=== PATIENT | female | born 1955 | race African-American/Black ===

== ENCOUNTER 2022-01-28 17:19 | Emergency (ER) | payer MEDICARE ==
[2022-01-28 18:29] LABS: Absolute Neutrophil Ct (ANC) 5.15 (1.4-6.9); Basophil (Absolute #) 0.01 (0-0.4); Eosinophil % 3.6 % (0.00-5.0); Eosinophil (Absolute #) 0.25 (0-0.5); Hematocrit 31.1 % (35-47); Hemoglobin 9.9 gm/dl (12.0-16.0); Lymphocytes % 17.3 % (24.0-44.0); Mean Cell Volume 99.7 fl (78-100); Mean Corpuscular Hemoglobin 31.7 pg (26-32); Mean Corpuscular Hgb Concent. 31.8 g/dl (32-36); Mean Platelet Volume 9.5 fl (7.5-11.0); Monocyte (Absolute #) 0.31 (0.0-1.3); Monocytes % 4.5 % (0.0-12.0); Neutrophil % 74.5 % (36.0-66.0); Platelet Count 216 K/mm3 (150-450); Red Blood Count 3.12 M/mm3 (4.1-5.4); Red Cell Distribution Width 14.2 % (11.5-14.0); White Blood Count 6.9 K/mm3 (4.0-10.5)
[2022-01-28 18:49] LABS: ALBUMIN 4.1 g/dL (3.5-5.0); ANION GAP 16.7 MEQ/L (5-15); BILIRUBIN,TOTAL 0.7 mg/dL (0.2-1.3); Calcium 9.2 mg/dL (8.4-10.2); Creatinine 1 5.53 mg/dL (0.52-1.04); EST GLOMERULAR FILTRATION RATE 8.1 ML/MIN; Potassium 5.7 mmol/L (3.5-5.1)
--- NOTE | 2022-01-28 19:52 | ERPHSYRPT ---
- History of Present Illness Time Seen by Provider: 01/28/22 17:22 Source: patient Exam Limitations: no limitations Patient Subjective Stated Complaint: pt brought in by private car from [facility] for abnormal labs, she was seen yesterday at [facility] and sent home, Triage Nursing Assessment: pt alert, arrived per wc, resp easy, mask applied, skin w/d, co left leg pain she states she believes she has celulitiis, no fever, pt able to get undressed, Physician History: 66 years old female with a history of drug abuse currently in rehab, hypertension, hyperlipidemia, CKD, recently treated for left lower extremity cellulitis is sent in ER for abnormal labs with a potassium of 5.6. As per report patient is having a downhill course for the last couple of weeks. Patient complaining of generalized weakness fatigue tiredness and feeling dehydrated. Denies any nausea vomiting or diarrhea. Denies any chest pain palpitations or shortness of breath. Allergies/Adverse Reactions: No Known Drug Allergies Allergy (Unverified 01/28/22 17:38) Home Medications: Bumetanide 1 mg [Bumex 1 mg] 1 ea DAILY 01/28/22 [History] Clonidine HCl 0.1 mg [Clonidine 0.1 mg Tablet] 0.1 mg PO DAILY 01/28/22 [History] Cyclobenzaprine HCl 10 mg DAILY 01/28/22 [History] Duloxetine HCl 60 mg PO DAILY 01/28/22 [History] Fluticasone Propionat,Microniz [Fluticasone Propionate Micro] 1 ea DAILY 01/28/22 [History] Hydralazine HCl 50 mg PO DAILY 01/28/22 [History] Hydralazine HCl 50 mg PO DAILY 01/28/22 [History] Insulin Glargine [Lantus Insulin] 100 unit SQ HS 01/28/22 [History] Insulin Lispro [Humalog] 100 unit SQ ACHS 01/28/22 [History] Lidocaine HCl 5% Patch [Lidoderm Patch 5%] 1 ea DAILY 01/28/22 [History] Magnesium Oxide 1 ea DAILY 01/28/22 [History] cephALEXin [Cephalexin] 500 mg PO BID 01/28/22 [History] Hx Influenza Vaccination/Date Given: Yes Hx Pneumococcal Vaccination/Date Given: Yes Immunizations Up to Date: Yes Travel Risk - International Travel Have you traveled outside of the country in past 3 weeks: No - Coronavirus Screening Are you exhibiting any of the following symptoms?: No Close contact with a COVID-19 positive Pt in past 14-21 Days: No - Vaccine Status Have you recieved a Covid-19 vaccination: Yes 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 - Vaccination Dates Date of 2cond Vaccination (if applicable): 2020 - Review of Systems Constitutional: Fatigue, Weakness Eyes: No Symptoms Ears, Nose, & Throat: No Symptoms Respiratory: No Symptoms Cardiac: No Symptoms Abdominal/Gastrointestinal: No Symptoms Genitourinary Symptoms: No Symptoms Musculoskeletal: Arthralgias Skin: Rash Neurological: No Symptoms Psychological: No Symptoms Endocrine: No Symptoms Hematologic/Lymphatic: No Symptoms Immunological/Allergic: No Symptoms - Past Medical History Pertinent Past Medical History: Yes Cardiac History: High Cholesterol Respiratory History: COPD Endocrine Medical History: Diabetes Type II Psycho-Social History: Depression - Past Surgical History Past Surgical History: Yes Musculoskeletal: Joint Replacement, Orthopedic Surgery Other Surgical History: knees replaced,carpal tunnel - Social History Smoking Status: Never smoker Exposure to second hand smoke: Yes Drug Use: cocaine Patient Lives Alone: No (treatment center) - Nursing Vital Signs Nursing Vital Signs: Initial Vital Signs Temperature 97.4 F 01/28/22 17:24 Pulse Rate 122 H 01/28/22 17:24 Respiratory Rate 18 01/28/22 17:24 Blood Pressure 129/76 01/28/22 17:24 O2 Sat by Pulse Oximetry 98 01/28/22 17:24 Pain Scale Pain Intensity 0 - Physical Exam General Appearance: no apparent distress, alert Eye Exam: PERRL/EOMI, eyes nml inspection Ears, Nose, Throat Exam: normal ENT inspection, TMs normal, pharynx normal, moist mucous membranes Neck Exam: normal inspection, non-tender, supple, full range of motion Respiratory Exam: normal breath sounds, lungs clear Cardiovascular Exam: normal heart sounds, tachycardia Gastrointestinal/Abdomen Exam: soft, normal bowel sounds, No tenderness Extremity Exam: normal range of motion, pedal edema, swelling (Left lower extremity) Neurologic Exam: alert, oriented x 3, cooperative, 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 Skin Exam: normal color SpO2 Interpretation: normal SpO2: 97 O2 Delivery: Room Air - Course EKG Interpreted by Me: RATE ([id number]), Sinus Tach, NORMAL AXIS, NORMAL INTERVALS, Non-specific ST Changes Ordered Tests: Active Orders 24 hr Category Date Time Status EKG-ER Only STAT Care 01/28/22 17:49 Completed IV Insertion STAT Care 01/28/22 17:49 Completed CHEST 1 VIEW (PORTABLE) Stat Exams 01/28/22 17:50 Taken CBC W DIFF Stat Lab 01/28/22 17:49 Completed CMP Stat Lab 01/28/22 18:25 Completed TROPONIN Q3H Lab 01/28/22 18:25 Completed Medication Summary Discontinued Medications Generic Name Dose Route Start Last Admin Trade Name Freq PRN Reason Stop Dose Admin Patiromer 8.4 gm 01/28/22 20:21 01/28/22 20:28 Patiromer Calcium Sorbitex 8.4 Gm Powd.Pack PO 01/28/22 20:22 8.4 gm STAT STA Administration Patiromer Confirm 01/28/22 20:27 Patiromer Calcium Sorbitex 8.4 Gm Powd.Pack Administered 01/28/22 20:28 Dose 8.4 gm PO .[employer] Lab/Rad Data: Laboratory Result Diagrams 01/28/22 17:49 01/28/22 18:25 Laboratory Results 01/28/22 01/28/22 01/28/22 Range/Units 18:25 18:25 17:49 WBC 6.9 (4.0-10.5) K/mm3 RBC 3.12 L (4.1-5.4) M/mm3 Hgb 9.9 L (12.0-16.0) gm/dl Hct 31.1 L (35-47) % MCV 99.7 (78-100) fl MCH 31.7 (26-32) pg MCHC 31.8 L (32-36) g/dl RDW 14.2 H (11.5-14.0) % Plt Count 216 (150-450) K/mm3 MPV 9.5 (7.5-11.0) fl Gran % 74.5 H (36.0-66.0) % Eos # (Auto) 0.25 (0-0.5) Absolute Lymphs (auto) 1.20 (1.0-4.6) Absolute Monos (auto) 0.31 (0.0-1.3) Lymphocytes % 17.3 L (24.0-44.0) % Monocytes % 4.5 (0.0-12.0) % Eosinophils % 3.6 (0.00-5.0) % Basophils % 0.1 (0.0-0.4) % Absolute Granulocytes 5.15 (1.4-6.9) Basophils # 0.01 (0-0.4) Sodium 137 (137-145) mmol/L Potassium 5.7 H (3.5-5.1) mmol/L Chloride 104 (98-107) mmol/L Carbon Dioxide 22 (22-30) mmol/L Anion Gap 16.7 H (5-15) MEQ/L BUN 69 H (7-17) mg/dL Creatinine 5.53 H (0.52-1.04) mg/dL Estimated GFR 8.1 ML/MIN Glucose 189 H (74-106) mg/dL Calcium 9.2 (8.4-10.2) mg/dL Total Bilirubin 0.70 (0.2-1.3) mg/dL AST 20 (14-36) U/L ALT 13 (0-35) U/L Alkaline Phosphatase 140 H (38-126) U/L Troponin I < 0.012 (0.000-0.034) ng/mL Serum Total Protein 8.0 (6.3-8.2) g/dL Albumin 4.1 (3.5-5.0) g/dL - Progress Progress: re-examined Progress Note: 01/28/22 20:18 Patient was tachycardic on presentation, given fluids. EKG showed sinus tach without any acute ST elevation and no acute T wave changes. Chest x-ray showed groundglass opacities/airspace disease versus congestion but patient is maintaining oxygen saturation at room air around 97%. She has a normal white count, chemistry showed potassium of 5.7 and creatinine 5.5 with no baseline available. I have obtained records from [facility] with no labs but negative DVT scan for left lower extremity and chest x-ray showing groundglass opacities. With creatinine of 5.5 I believe patient needs evaluation with nephrology, reviewed with Dr. Tinoco at [facility] and patient is accepted for transfer. Counseled pt/family regarding: lab results, diagnosis, rad results - Departure Departure Disposition: Transfer Clinical Impression: Hyperkalemia, Viral pneumonia, Generalized weakness Renal failure Qualifiers: Renal failure chronicity: acute on chronic Acute renal failure type: unspecified Chronic kidney disease stage: unspecified stage Qualified Code(s): N 17.9 - Acute kidney failure, unspecified Condition: Stable Critical Care Time: No Referrals: DOCTOR,NO FAMILY [Primary Care Provider] - Follow up/PCP as directed
[2022-01-28 20:08] VITALS: PULSE 117
[2022-01-28] MEDS ORDERED: VELTASSA PO STA (20:21)
[2022-01-28] MEDS ORDERED: VELTASSA PO ONE (20:27)
[2022-01-28 20:48] VITALS: BP 111/74
[2022-01-28 22:53] VITALS: O2SAT 97
--- NOTE | 2022-01-29 08:43 | XRAY ---
Indication: Weakness. Comparison: None Portable chest demonstrates minimal bilateral mid to lower lung infiltrates versus atelectasis without consolidation/large effusion. Right hemidiaphragm elevation. Heart not enlarged. Bony thorax intact with right shoulder arthroplasty and moderate degenerative changes especially left shoulder.
== END 2022-01-28 21:18 | disposition short-term general hospital (02) ==
LOC: ED 17:19
DX: J12.9 Viral pneumonia, unspecified (principal); E87.5 Hyperkalemia; R53.1 Weakness; N17.9 Acute kidney failure, unspecified; R53.83 Other fatigue; E78.5 Hyperlipidemia, unspecified; J44.9 Chronic obstructive pulmonary disease, unspecified; E11.22 Type 2 diabetes mellitus with diabetic chronic kidney disease; I12.9 Hypertensive chronic kidney disease with stage 1 through stage 4 chronic kidney disease, or unspecified chronic kidney disease; N18.9 Chronic kidney disease, unspecified; Z79.4 Long term (current) use of insulin; Z79.899 Other long term (current) drug therapy
CPT/HCPCS: 36000; 36415; 71045; 80053; 84484; 85025; 93005; 99285